=== PATIENT | female | born 1985 ===

== ENCOUNTER 2023-01-16 06:50 | Day surgery (SDC) | payer OTHER ==
[~2023-01-16] VITALS: Ht 157.5 cm; Wt 75.7 kg
[2023-01-16] MEDS ORDERED: SIMETHICONE80 MG PO (09:02)
[2023-01-16] MEDS ORDERED: PERCOCET 5-3251 EACH PO (09:02)
[2023-01-16] MEDS ORDERED: COLACE100 MG PO (09:02)
== END 2023-01-16 17:15 | disposition home or self-care (01) ==
LOC: CIR.AMB 06:50
PROVIDERS: ATTEND Student in an Organized Health Care Education/Training Program
DX: Z30.2 Encounter for sterilization (principal); N80.203 Endometriosis of bilateral fallopian tubes, unspecified depth; Z20.822 Contact with and (suspected) exposure to COVID-19; Z88.6 Allergy status to analgesic agent